=== PATIENT | male | born 1985 | race Caucasian/White ===

== ENCOUNTER 2017-10-20 21:09 | Emergency (ER) | payer MEDICAID, OTHER ==
[~2017-10-20] VITALS: Ht 170.2 cm; Wt 72.6 kg
[2017-10-20 21:23] VITALS: BP 144/81
[2017-10-20] MEDS ORDERED: IBUPROFEN 600 MG TAB ONE (21:35)
[2017-10-20] MEDS ORDERED: IBUPROFEN 600 MG TAB PO ONE (21:35)
--- NOTE | 2017-10-20 21:36 | NUR ---
PT. AMBULATED TO [facility]
--- NOTE | 2017-10-21 01:37 | NUR ---
PT. AMBULATED TO [facility]
--- NOTE | 2017-10-21 01:50 | NUR ---
32Y/M PT. PRESENTS TO ED WITH C/O LACERATION LT.2TH FINGER X 2 HRS. CUT HIMSELF BY SAW BY ACCIDENT. UNABLE TO RECALL TETANUS VACCINE. NO MED HX. AAO X4, AMBULATORY WITHN STEADY GAIT. LT.INDEX FINGER LAC, NO ACTIVE BLEEDING, C/O PAIN 06/04. VSS, ER MADE AWARE OF PT. STATUS.
[2017-10-21] MEDS ORDERED: BACITRACIN OINT 500 UNITS/GM PKT TP ONE (02:45)
--- NOTE | 2017-10-21 03:20 | NUR ---
Patient discharged with v/s stable. Written and verbal after care instructions given and explained. Patient alert, oriented and verbalized understanding of instructions. Ambulatory with steady gait. All questions addressed prior to discharge. ID band removed. Patient advised to follow up with PMD. Rx of TYLENOL NO.3, NAPROSYN 500 MG given. Patient educated on indication of medication including possible reaction and side effects. Opportunity to ask questions provided and answered.
[2017-10-21 06:08] VITALS: BP 144/81
== END 2017-10-21 03:20 | disposition home or self-care (01) ==
LOC: MED 21:09
DX: S61.201A Unspecified open wound of left index finger without damage to nail, initial encounter (principal); W27.8XXA Contact with other nonpowered hand tool, initial encounter; Y93.89 Activity, other specified; Y92.89 Other specified places as the place of occurrence of the external cause; Y99.8 Other external cause status
CPT/HCPCS: 90471; 90715; 99283

== ENCOUNTER 2021-03-08 | Emergency (ER) | payer MEDICAID ==
[~2021-03-08] VITALS: Ht 172.7 cm; Wt 86.2 kg
[2021-03-08 00:15] VITALS: BP 150/95
--- NOTE | 2021-03-08 00:30 | NUR ---
35 Y/O MALE PATIENT PRESENTS TO ED WITH SHORTNESS OF BREATHE WHEN COUGHING. PT STATES "I AM HAVING A HARD TIME SPECIALLY WHEN I COUGH A LOT, I HAVE CHEST PAIN WHEN COUGHING TOO MUCH" . DENIES N/V/D; SKIN IS PINK/WARM/DRY; AAOX4 WITH EVEN AND STEADY GAIT; LUNGS CLEAR BL; HR EVEN AND REGULAR; PT DENIES ANY FEVER, CP, SOB, OR COUGH AT THIS TIME; PATIENT STATES PAIN OF 7/10 AT THIS TIME; VSS; PATIENT POSITIONED FOR COMFORT; HOB ELEVATED; BEDRAILS UP X2; BED DOWN. ER MD MADE AWARE OF PT STATUS. NKA PMH: DENIES
--- NOTE | 2021-03-08 00:33 | NUR ---
PT AMBULATORY TO BED #5
[2021-03-08 00:55] VITALS: BP 150/95
--- NOTE | 2021-03-08 01:41 | NUR ---
PT STATED " I'M JUST GONNA COME BACK TOMORROW." PATIENT LEFT WITHOUT BEING SEEN BY DR. JOHNSON. NO FURTHER CARE PROVIDED FOR PATIENT.
== END 2021-03-08 01:41 | disposition left against medical advice (07) ==
LOC: MED
DX: R05 Cough (principal); R06.02 Shortness of breath; Z53.21 Procedure and treatment not carried out due to patient leaving prior to being seen by health care provider

== ENCOUNTER 2021-12-04 23:14 | Emergency (ER) | payer MEDICAID ==
[~2021-12-04] VITALS: Ht 172.7 cm; Wt 81.6 kg
[2021-12-04 23:18] VITALS: BP 147/90
--- NOTE | 2021-12-05 00:22 | NUR ---
PT TAKEN TO BED 2
--- NOTE | 2021-12-05 00:40 | NUR ---
36 YO M BIB SELF WITH C/C OF 10/10 FLANK PAIN X3DAYS. PT STATES HE JUST WOKE UP AND FEELS IT IS A LOT WORSE TODAY. PT DENIES URINARY CHANGES. PT DENIES INJURIES. -FEVER, CHILLS, N/V/D. DENIES HX, RX AND ALLERGIES.
--- NOTE | 2021-12-05 00:51 | NUR ---
Dr. George examining patient.
[2021-12-05] MEDS ORDERED: KETOROLAC 15 MG/ML VIAL IM ONE (00:55)
[2021-12-05] MEDS ORDERED: methocarbamoL 500 MG TAB PO ONE (00:55)
[2021-12-05] MEDS ORDERED: IBUP-2213 PO (01:02)
[2021-12-05] MEDS ORDERED: METH-1681 PO (01:02)
[2021-12-05 01:40] VITALS: BP 147/90
--- NOTE | 2021-12-05 01:40 | NUR ---
Patient discharged with v/s stable. Written and verbal after care instructions given and explained. Patient alert, oriented and verbalized understanding of instructions. Ambulatory with steady gait. All questions addressed prior to discharge. ID band removed. Patient advised to follow up with PMD. Rx of ROBAXIN AND IBUPROFEN given. Patient educated on indication of medication including possible reaction and side effects. Opportunity to ask questions provided and answered.
== END 2021-12-05 01:40 | disposition home or self-care (01) ==
LOC: MED 23:14
DX: S39.012A Strain of muscle, fascia and tendon of lower back, initial encounter (principal); M41.9 Scoliosis, unspecified; X50.0XXA Overexertion from strenuous movement or load, initial encounter; Y93.89 Activity, other specified; Y92.89 Other specified places as the place of occurrence of the external cause; Y99.8 Other external cause status
CPT/HCPCS: 96372; 99283; J1885